=== PATIENT | male | born 1965 | race Caucasian/White ===

== ENCOUNTER 2017-12-31 12:24 | Emergency (ER) | payer BC ==
[2017-12-31] MEDS ORDERED: Sodium Chloride 0.9% 10 ML Syringe FLUSH PRN (12:29)
[2017-12-31] MEDS ORDERED: Famotidine 20 MG/2 ML SDV IVPUSH ONE (12:30)
[2017-12-31] MEDS ORDERED: Alum Hydrox/Mag Hydrox/Simeth 30 ML, Lidocaine 2% 15 ML PO ONE ×2 (12:30)
--- NOTE | 2017-12-31 12:33 | EDM.PDOC ---
ED HPI GENERAL MEDICAL PROBLEM - General Chief Complaint: Chest Pain Stated Complaint: [facility] Time Seen by Provider: 12/31/17 12:29 Source of Information: Reports: Patient, EMS History Limitations: Reports: No Limitations - History of Present Illness INITIAL COMMENTS - FREE TEXT/NARRATIVE: The patient presents with burning chest pain. This stared about 5 minutes before he called EMS. He at a spicy breakfast taco this morning. He has no shortness of breath with it. He has no fever but he does have chills. He is diaphoretic. He has a history of coronary artery disease with an CO and 4 stents. He has no shortness of breath. He has no cough or abdominal pain. He has a history of HTN and hypercholesterolemia. EMS gave him 2 nitro, aspirin and 2 doses of morphine. Onset: Sudden Duration: Minutes: Location: Reports: Chest Quality: Reports: Burning Severity: Moderate Improves with: Reports: None Worsens with: Reports: None Associated Symptoms: Reports: Chest Pain, Fever/Chills. Denies: Cough, Headaches, Nausea/Vomiting, Shortness of Breath Chest Pain Score (Numeric/FACES): 9 - Related Data Allergies Allergy/AdvReac Type Severity Reaction Status Date / Time No Known Allergies Allergy Verified 12/31/17 12:29 Home Meds: Home Meds Enalapril [Vasotec] 10 mg PO BID 10/14/15 [History] Esomeprazole Magnesium 40 mg PO DAILY 10/14/15 [History] Metoprolol Tartrate 50 mg PO DAILY 10/14/15 [History] Sertraline HCl 50 mg PO BID 10/14/15 [History] atorvaSTATin Calcium [Atorvastatin Calcium] 40 mg PO DAILY 10/14/15 [History] Aspirin [Halfprin] 81 mg PO DAILY 12/31/17 [History] Fish Oil/[place]-3 Fatty Acids [Fish Oil 1,000 MG] 1 each PO DAILY 12/31/17 [ History] Garlic 1 each PO DAILY 12/31/17 [History] Gluc 2KCl/Chondr/[place] Hy/Hy Ac [Glucosamine & Chondroitin Cap] 1 each PO DAILY 12/31/17 [History] Mens Alive. 1 tab PO DAILY 12/31/17 [History] Ubidecarenone [Co Q-10] 100 mg PO MOWEFR 12/31/17 [History] Past Medical History Cardiovascular History: Reports: Hypertension, [place] Respiratory History: Reports: Sleep Apnea Gastrointestinal History: Reports: GERD, Hiatal Hernia - Past Surgical History Cardiovascular Surgical History: Reports: Coronary Artery Stent ED ROS GENERAL - Review of Systems Review Of Systems: See Below Constitutional: Reports: No Symptoms HEENT: Reports: No Symptoms Respiratory: Reports: No Symptoms Cardiovascular: Reports: Chest Pain Endocrine: Reports: No Symptoms GI/Abdominal: Reports: No Symptoms : Reports: No Symptoms Musculoskeletal: Reports: No Symptoms Skin: Reports: No Symptoms ED EXAM, GENERAL - Physical Exam Exam: See Below Exam Limited By: No Limitations General Appearance: Alert, No Apparent Distress Ears: Normal External Exam Nose: Normal Inspection Head: Atraumatic, Normocephalic Neck: Normal Inspection Respiratory/Chest: No Respiratory Distress, Lungs Clear, Normal Breath Sounds Cardiovascular: Regular Rate, Rhythm, No Edema, No Murmur GI/Abdominal: Soft, Non-Tender, No Organomegaly, No Mass Extremities: Normal Inspection Neurological: Alert, Oriented, No Motor/Sensory Deficits EKG INTERPRETATION EKG Date: 12/31/17 Time: 12:29 Rhythm: NSR Rate (Beats/Min): 69 [place]: Normal P-Wave: Present QRS: Normal ST-T: Other (Slight elevation in the inferior leads with some ST depression in the anterior leads) Course - Vital Signs Last Recorded V/S: Last Vital Signs Temp 96.4 F 12/31/17 12:29 Pulse 74 12/31/17 12:55 Resp 26 H 12/31/17 12:29 BP 119/74 12/31/17 12:55 Pulse Ox 99 12/31/17 12:29 - Orders/Labs/Meds Orders: Active Orders 24 hr Category Date Time Status Cardiac Monitoring [RC] . DIRECTED Care 12/31/17 12:29 Active EKG 12 Lead [EKG Documentation Completion] [RC] STAT Care 12/31/17 13:07 Active EKG Documentation Completion [RC] STAT Care 12/31/17 12:30 Active Peripheral IV Care [RC] . DIRECTED Care 12/31/17 12:30 Active Chest 1V Frontal [CR] Stat Exams 12/31/17 12:30 Taken CBC W/O DIFF,HEMOGRAM [HEME] MOTH@0700 Lab 01/01/18 07:00 Ordered CBC W/O DIFF,HEMOGRAM [HEME] MOTH@0700 Lab 01/05/18 07:00 Ordered CBC W/O DIFF,HEMOGRAM [HEME] MOTH@0700 Lab 01/08/18 07:00 Ordered CBC W/O DIFF,HEMOGRAM [HEME] MOTH@0700 Lab 01/12/18 07:00 Ordered CBC W/O DIFF,HEMOGRAM [HEME] MOTH@0700 Lab 01/15/18 07:00 Ordered CBC W/O DIFF,HEMOGRAM [HEME] MOTH@0700 Lab 01/19/18 07:00 Ordered COMPREHENSIVE METABOLIC PN,CMP [CHEM] Stat Lab 12/31/17 12:53 Received TROPONIN I [CHEM] Stat Lab 12/31/17 12:53 Received Heparin Sodium Med 12/31/17 13:09 Once 5,000 units IVPUSH ONETIME ONE Heparin Sodium/D5W [Heparin 25,000 Units in D5W 500 ML] Med 12/31/17 13:15 Ordered 25,000 units in 500 ml IV TITRATE Nitroglycerin/D5W [Nitroglycerin 25 MG/D5W 250 ML] Med 12/31/17 13:15 Ordered 25 mg in 250 ml IV TITRATE Sodium Chloride 0.9% [Saline Flush] Med 12/31/17 12:29 Active 10 ml FLUSH ASDIRECTED PRN Tenecteplase [Tnkase] Med 12/31/17 13:03 Once 50 mg IV ONETIME ONE Peripheral IV Insertion Adult [OM.PC] Stat Oth 12/31/17 12:29 Ordered Medication Orders Sodium Chloride (Saline Flush) 10 ml FLUSH ASDIRECTED PRN PRN Reason: Keep Vein Open Last Admin: 12/31/17 12:38 Dose: 10 ml Labs: Laboratory Tests 12/31/17 Range/Units 12:53 WBC 11.57 H (4.23-9.07) K/mm3 RBC 5.10 (4.63-6.08) M/mm3 Hgb 16.6 (13.7-17.5) gm/L Hct 48.2 (40.1-51.0) % MCV 94.5 H (79.0-92.2) fl MCH 32.5 H (25.7-32.2) pg MCHC 34.4 (32.2-35.5) g/dl RDW Std Deviation 44.5 H (35.1-43.9) fL Plt Count 289 (163-337) K/mm3 MPV 10.3 (9.4-12.3) fl Neut % (Auto) 59.3 (34.0-67.9) % Lymph % (Auto) 28.3 (21.8-53.1) % [place] % (Auto) 7.0 (5.3-12.2) % Eos % (Auto) 4.5 (0.8-7.0) Baso % (Auto) 0.7 (0.1-1.2) % Neut # (Auto) 6.87 H (1.78-5.38) K/mm3 Lymph # (Auto) 3.27 (1.32-3.57) K/mm3 [place] # (Auto) 0.81 (0.30-0.82) K/mm3 Eos # (Auto) 0.52 (0.04-0.54) K/mm3 Baso # (Auto) 0.08 (0.01-0.08) K/mm3 Meds: Medications Generic Name Dose Route Start Last Admin Trade Name Freq PRN Reason Stop Dose Admin Sodium Chloride 10 ml 12/31/17 12:29 12/31/17 12:38 Saline Flush FLUSH 10 ml ASDIRECTED PRN Administration Keep Vein Open Discontinued Medications Generic Name Dose Route Start Last Admin Trade Name Freq PRN Reason Stop Dose Admin Al Hydroxide/Mg Hydroxide 30 0 ml 12/31/17 12:30 12/31/17 12:36 ml/ Lidocaine HCl 15 ml PO 12/31/17 12:31 45 ml ONETIME ONE Administration Famotidine 20 mg 12/31/17 12:30 12/31/17 12:37 Pepcid IVPUSH 12/31/17 12:31 20 mg ONETIME ONE Administration Hydromorphone HCl 0.5 mg 12/31/17 12:48 12/31/17 12:49 Dilaudid IVPUSH 12/31/17 12:49 0.5 mg ONETIME ONE Administration Hydromorphone HCl 0.5 mg 12/31/17 12:59 Dilaudid IVPUSH 12/31/17 13:00 ONETIME ONE Nitroglycerin 0.4 mg 12/31/17 12:40 12/31/17 12:48 Nitrostat SL 12/31/17 12:41 0.4 mg ONETIME ONE Administration Nitroglycerin Confirm 12/31/17 12:42 12/31/17 12:44 Nitrostat Administered 12/31/17 12:43 Not Given Dose 0.4 mg .ROUTE .STK-MED ONE Tenecteplase Confirm 12/31/17 13:03 Tnkase Administered 12/31/17 13:04 Dose 50 mg .ROUTE .STK-MED ONE - Re-Assessments/Exams Free Text/Narrative Re-Assessment/Exam: 12/31/17 13:12 I ordered an IV saline lock, 2 nitro 0.4mg SL, pepcid 20mg IV, GI cocktail, EKG , CXR, and labs. His EKG shows a NSR with slight elevation in the inferior leads and some ST depression in the anterior leads. He had more pain so I ordered dilaudid 0.5mg IV X 2. I ordered another EKG at 1300 and there now is significant ST elevations in the inferior leads with reciprocal changes in the anterior leads. His CXR looks good. I ordered TnKase 50mg IV, heparin drip of 5,000 units IV, and a drip ant then a nitro drip. 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 Departure - Departure Time of Disposition: 13:20 Disposition: DC/Tfer to Acute Hospital 02 Reason for Transfer *Q: Primary PCI Indicated Condition: Serious Clinical Impression: STEMI (ST elevation myocardial infarction) Qualifiers: Involved coronary artery: right coronary artery Qualified Code(s): I21.11 - ST elevation (STEMI) myocardial infarction involving right coronary artery Forms: ED Department Discharge - My Orders Last 24 Hours: My Active Orders 12/31/17 12:29 Cardiac Monitoring [RC] . DIRECTED Sodium Chloride 0.9% [Saline Flush] 10 ml FLUSH ASDIRECTED PRN Peripheral IV Insertion Adult [OM.PC] Stat 12/31/17 12:30 EKG Documentation Completion [RC] STAT Peripheral IV Care [RC] . DIRECTED Chest 1V Frontal [CR] Stat 12/31/17 12:53 COMPREHENSIVE METABOLIC PN,CMP [CHEM] Stat TROPONIN I [CHEM] Stat 12/31/17 13:03 Tenecteplase [Tnkase] 50 mg IV ONETIME ONE 12/31/17 13:07 EKG 12 Lead [EKG Documentation Completion] [RC] STAT 12/31/17 13:09 Heparin Sodium 5,000 units IVPUSH ONETIME ONE 12/31/17 13:15 Heparin Sodium/D5W [Heparin 25,000 Units in D5W 500 ML] 25,000 units in 500 ml IV TITRATE Nitroglycerin/D5W [Nitroglycerin 25 MG/D5W 250 ML] 25 mg in 250 ml IV TITRATE 01/01/18 07:00 CBC W/O DIFF,HEMOGRAM [HEME] MOTH@69901/05/18 07:00 CBC W/O DIFF,HEMOGRAM [HEME] MOTH@69901/08/18 07:00 CBC W/O DIFF,HEMOGRAM [HEME] MOTH@69901/12/18 07:00 CBC W/O DIFF,HEMOGRAM [HEME] MOTH@69901/15/18 07:00 CBC W/O DIFF,HEMOGRAM [HEME] MOTH@69901/19/18 07:00 CBC W/O DIFF,HEMOGRAM [HEME] MOTH@699 - Assessment/Plan Last 24 Hours: My Active Orders 12/31/17 12:29 Cardiac Monitoring [RC] . DIRECTED Sodium Chloride 0.9% [Saline Flush] 10 ml FLUSH ASDIRECTED PRN Peripheral IV Insertion Adult [OM.PC] Stat 12/31/17 12:30 EKG Documentation Completion [RC] STAT Peripheral IV Care [RC] . DIRECTED Chest 1V Frontal [CR] Stat 12/31/17 12:53 COMPREHENSIVE METABOLIC PN,CMP [CHEM] Stat TROPONIN I [CHEM] Stat 12/31/17 13:03 Tenecteplase [Tnkase] 50 mg IV ONETIME ONE 12/31/17 13:07 EKG 12 Lead [EKG Documentation Completion] [RC] STAT 12/31/17 13:09 Heparin Sodium 5,000 units IVPUSH ONETIME ONE 12/31/17 13:15 Heparin Sodium/D5W [Heparin 25,000 Units in D5W 500 ML] 25,000 units in 500 ml IV TITRATE Nitroglycerin/D5W [Nitroglycerin 25 MG/D5W 250 ML] 25 mg in 250 ml IV TITRATE 01/01/18 07:00 CBC W/O DIFF,HEMOGRAM [HEME] MOTH@69901/05/18 07:00 CBC W/O DIFF,HEMOGRAM [HEME] MOTH@69901/08/18 07:00 CBC W/O DIFF,HEMOGRAM [HEME] MOTH@69901/12/18 07:00 CBC W/O DIFF,HEMOGRAM [HEME] MOTH@69901/15/18 07:00 CBC W/O DIFF,HEMOGRAM [HEME] MOTH@69901/19/18 07:00 CBC W/O DIFF,HEMOGRAM [HEME] MOTH@699
[2017-12-31] MEDS ORDERED: Nitroglycerin 0.4 MG Tab.SL ONE (12:42)
[2017-12-31] MEDS: Nitroglycerin 0.4 MG Tab.SL SL ONE ×2 (12:43→12:48)
[2017-12-31] MEDS ORDERED: HYDROmorphone 0.5 MG/0.5 ML SYRINGE IVPUSH ONE ×2 (12:48→12:59)
[2017-12-31] MEDS ORDERED: Tenecteplase 50 MG Kit ONE (13:03)
[2017-12-31] MEDS ORDERED: Tenecteplase 50 MG Kit IV ONE (13:03)
[2017-12-31] MEDS ORDERED: Heparin Sodium 5,000 Units/ML Vial IVPUSH ONE (13:09)
[2017-12-31] MEDS ORDERED: Heparin Sodium 5,000 Units/ML Vial ONE (13:09)
[2017-12-31] MEDS ORDERED: Heparin Sodium/D5W 500 ML ONE (13:09)
[2017-12-31] MEDS ORDERED: Nitroglycerin/D5W 25 MG/250 ML BOTTLE ONE (13:10)
[2017-12-31] MEDS ORDERED: Nitroglycerin/D5W 25 MG/250 ML BOTTLE IV SCH (13:15)
[2017-12-31] MEDS ORDERED: Heparin Sodium/D5W 25,000 UNITS/500 ML BAG IV SCH (13:15)
[2017-12-31 14:14] VITALS: BP 159/88
--- NOTE | 2018-01-01 09:04 | CR ---
Chest: Portable view of the chest was obtained. Comparison: Prior chest x-ray of 10/14/15. Heart size appears within normal limits. Tortuous thoracic aorta is seen. Lungs are clear without acute parenchymal change. Bony structures are grossly intact. Impression: 1. Nothing acute is seen on portable chest x-ray. Diagnostic code #1
== END 2017-12-31 13:42 ==
LOC: JD.ED 12:24
DX: I21.11 ST elevation (STEMI) myocardial infarction involving right coronary artery (principal); I10 Essential (primary) hypertension; I25.2 Old myocardial infarction; K21.9 Gastro-esophageal reflux disease without esophagitis; Z79.82 Long term (current) use of aspirin; Z79.899 Other long term (current) drug therapy
CPT/HCPCS: 36415; 71045; 80053; 84484; 85025; 93005; 96365; 96368; 96375; 96376; 99285; A9270; J1170; J1644; J3101; J7050

== ENCOUNTER 2020-10-09 07:12 | Day surgery (SDC) | payer OTHER, MEDICAID ==
[~2020-10-09 07:12] MED LIST: Lactated Ringers 1,000 ML IV SCH; Lidocaine 1%/Sod Bicarbonate in NS 8.4% 1 ML Syringe IDERM PRN; Midazolam 1 MG/ML 2 ML SDV ONE; Propofol 200 MG/20 ML SDV ONE; Sodium Chloride 0.9% 10 ML Syringe FLUSH PRN; fentaNYL 100 MCG/2 ML SDV ONE
--- NOTE | 2020-10-09 07:29 | PCM.PREANE ---
Preanesthetic Assessment - Anesthesia/Transfusion/Family Hx Anesthesia History: Prior Anesthesia Without Reaction Family History of Anesthesia Reaction: No Transfusion History: No Prior Transfusion(s) - Review of Systems General: Other (BMI 42) Pulmonary: Other (CPAP at night, current smokeless tobacco user, last chewed yesterday) Cardiovascular: Other (pt as history of 3 [place]/s last one in december 2017. last heart cath in 2018 demonstrated all stents open and EF showed 50-60%, last EKG was SR, stress test jul 2020 was negative) Gastrointestinal: Other (on current meds for GERD, history of hiatial hernia) Neurological: No Symptoms Other: Reports: Diabetes (on orals), Depression - Physical Assessment NPO Status Date: 10/08/20 NPO Status Time: 23:00 Weight: 130.9 kg ASA Class: 3 Mental Status: Alert & Oriented x3 Airway Class: Mallampati = 2 Dentition: Reports: Normal Dentition Thyro-Mental Finger Breadths: 3 Mouth Opening Finger Breadths: 3 ROM/Head Extension: Full Lungs: Clear to Auscultation, Normal Respiratory Effort Cardiovascular: Regular Rate, Regular Rhythm - Allergies Allergies/Adverse Reactions: Allergies Allergy/AdvReac Type Severity Reaction Status Date / Time No Known Allergies Allergy Verified 10/06/20 11:35 - Blood Blood Available: No Product(s) Available: None - Anesthesia Plan Beta Scooby: Metoprolol Med Last Dose Date: 10/09/20 Med Last Dose Time: 06:30 - Acknowledgements Anesthesia Type Planned: MAC Pt an Appropriate Candidate for the Planned Anesthesia: Yes Alternatives and Risks of Anesthesia Discussed w Pt/Guardian: Yes Pt/Guardian Understands and Agrees with Anesthesia Plan: Yes PreAnesthesia Questionnaire HEENT History: Reports: Impaired Vision, Other (See Below) Other HEENT History: wears glasses Cardiovascular History: Reports: Hypertension, [place], Stents, Other (See Below) Other Cardiovascular History: NSTEMI, ACS, heart cath with stents placed Respiratory History: Reports: Sleep Apnea Gastrointestinal History: Reports: GERD, Hiatal Hernia Genitourinary History: Reports: None 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: None Neurological History: Reports: None Psychiatric History: Reports: Addiction, Anxiety, Depression, Other (See Below) Other Psychiatric History: pt is a smoker Endocrine/Metabolic History: Reports: Other (See Below) Other Endocrine/Metabolic History: metabolic sydnrome Hematologic History: Reports: None Immunologic History: Reports: None Oncologic (Cancer) History: Reports: None Dermatologic History: Reports: None - Infectious Disease History Infectious Disease History: Reports: None - Past Surgical History Head Surgeries/Procedures: Reports: None Cardiovascular Surgical History: Reports: Coronary Artery Stent Other Cardiovascular Surgeries/Procedures: stents 2000. stents in 2010 Respiratory Surgical History: Reports: None GI Surgical History: Reports: None Female Surgical History: Reports: None Male Surgical History: Reports: None Endocrine Surgical History: Reports: None Neurological Surgical History: Reports: None Musculoskeletal Surgical History: Reports: Arthroscopic Knee Oncologic Surgical History: Reports: None Dermatological Surgical History: Reports: None - SUBSTANCE USE Tobacco Use Status *Q: Current Every Day Tobacco User Recreational Drug Use History: No - HOME MEDS Home Medications: Home Meds Enalapril [Vasotec] 10 mg PO BID 10/14/15 [History] Esomeprazole Magnesium 40 mg PO DAILY 10/14/15 [History] Sertraline HCl 100 mg PO DAILY 10/14/15 [History] Aspirin [Halfprin] 81 mg PO DAILY 12/31/17 [History] Fish Oil/[place]-3 Fatty Acids [Fish Oil 1,000 MG] 1 gm PO DAILY 12/31/17 [History] Garlic 1 each PO DAILY 12/31/17 [History] Ubidecarenone [Co Q-10] 100 mg PO DAILY 12/31/17 [History] Albuterol Sulfate [Albuterol Sulfate HFA] 2 puff INH QID 10/06/20 [History] Isosorbide Mononitrate [Imdur] 30 mg PO DAILY 10/06/20 [History] Metoprolol Succinate 50 mg PO DAILY 10/06/20 [History] Multivitamin 1 tab PO DAILY 10/06/20 [History] Nitroglycerin [Nitrostat] 0.4 mg SL ASDIRECTED PRN 10/06/20 [History] Pantoprazole Sodium [Protonix] 40 mg PO QAM 10/06/20 [History] Prasugrel HCl [Effient] 10 mg PO DAILY 10/06/20 [History] atorvaSTATin [Lipitor] 40 mg PO DAILY 10/06/20 [History] - CURRENT (IN HOUSE) MEDS Current Meds: Current Medications Lactated Ringer's (Ringers, Lactated) 1,000 mls @ 125 mls/hr IV ASDIRECTED MARTA Stop: 10/09/20 23:00 Lidocaine/Sodium Bicarbonate (Lidocaine 1%/Sod Bicarbonate In Ns 8.4% 1 Ml Syringe) 0.25 ml IDERM ONETIME PRN PRN Reason: Prior to IV Start Stop: 10/09/20 18:00 Sodium Chloride (Sodium Chloride 0.9% 10 Ml Syringe) 10 ml FLUSH ASDIRECTED PRN PRN Reason: Keep Vein Open Stop: 10/09/20 18:00 Discontinued Medications Fentanyl (Fentanyl 100 Mcg/2 Ml Sdv) Confirm Administered Dose 100 mcg .ROUTE .STK-MED ONE Stop: 10/09/20 07:09 Midazolam HCl (Midazolam 1 Mg/Ml 2 Ml Sdv) Confirm Administered Dose 2 mg .ROUTE .STK-MED ONE Stop: 10/09/20 07:09 Propofol (Propofol 200 Mg/20 Ml Sdv) Confirm Administered Dose 600 mg .ROUTE .STK-MED ONE Stop: 10/09/20 07:09
[2020-10-09] MEDS ORDERED: Propofol 200 MG/20 ML SDV ONE (08:43)
--- NOTE | 2020-10-09 08:59 | PCM48HPAN ---
Post Anesthesia Note - EVALUATION WITHIN 48HRS OF ANESTHETIC Vital Signs in Normal Range: Yes Patient Participated in Evaluation: Yes Respiratory Function Stable: Yes Airway Patent: Yes Cardiovascular Function Stable: Yes Hydration Status Stable: Yes Pain Control Satisfactory: Yes Nausea and Vomiting Control Satisfactory: Yes Mental Status Recovered: Yes Vital Signs: Last Vital Signs Temp 36.1 C 10/09/20 07:15 Pulse 84 10/09/20 07:15 Resp 16 10/09/20 07:15 BP 139/62 10/09/20 07:15 Pulse Ox 95 10/09/20 07:15
[2020-10-09] MEDS ORDERED: fentaNYL 100 MCG/2 ML SDV IVPUSH ONE (09:00)
[2020-10-09] MEDS ORDERED: oxyCODONE 5 MG Tab PO ONE (09:19)
[2020-10-09 09:51] VITALS: BP 122/74; PULSE 71
--- NOTE | 2020-10-09 12:42 | PROC ---
DATE OF OPERATION: 10/09/2020 SURGEON: Kaykay Lee MD PREOPERATIVE DIAGNOSES: 1. Gastroesophageal reflux disease. 2. Need for screening colonoscopy. POSTOPERATIVE DIAGNOSES: 1. Small hiatal hernia. 2. 2 colonic polyps - removed. 3. Diverticulosis. 4. Grade 4 internal hemorrhoids - Banded. ESTIMATED BLOOD LOSS: Minimal. OPERATION PERFORMED: 1. Esophagogastroduodenoscopy. 2. Colonoscopy. ANESTHESIA: Monitored anesthesia care. COMPLICATIONS: None. INDICATION AND CONSENT: Mr. Baldwin is a 55-year-old male who has heartburn and reflux. The patient also never had a colonoscopy in the past. The patient wanted to have a screening colonoscopy due to age. I saw the patient, discussed risks, benefits, and alternatives. During our discussion, we noted that the patient had prior MIs and patient was recently placed on prasugrel based on his chest pains. Because of this and the fact that he was asymptomatic, I discussed with him about holding the prasugrel and I did communicate with his plug sorter who has agreed that it is safe to hold the prasugrel. The patient had longstanding symptomatic hemorrhoid that was bulging out every time patient had a bowel movement and was staying outside. The patient wanted this treated during the colonoscopy. We discussed that if we were to treat the hemorrhoid, then the patient will have to be off prasugrel for another 10 days post treatment. However, the patient will need to continue taking aspirin for preventative due to his strong history of cardiac problems. The patient agreed and we discussed risks, benefits, and alternatives and informed consent was obtained. DESCRIPTION OF PROCEDURE: The patient was taken to the procedure room, placed in left lateral decubitus position. Monitored anesthesia care was induced. We began with an EGD. Prior to insertion of the scope, time-out was performed and the bite block was placed. We started with an EGD, placed the scope down to the mouth and taken all the way to the stomach. We did this while examining the esophagus, which appeared normal. The GE junction was at 38 cm and was regular. The Z-line was regular and there was a medium-sized hiatal hernia, sliding type. Then, we went into the stomach and the second portion of duodenum which was normal. First portion duodenum was also normal. In the antrum. there was mild granularity Therefore, biopsies were taken with cold forceps to rule out infection. The rest of the stomach appeared normal. There was large amount of fluid in the stomach that was suctioned out. This appeared to be slightly bilious. On retroflexion, we confirmed a small hiatal hernia, sliding type, and then went back to the GE junction and examined this area and that appeared to be normal. Distal esophagus was normal. Once this was done, we went back to the stomach, suctioned out air and all the fluid from the stomach and concluded this part of the exam. Of note, we took some biopsies from the GE junction to make sure there were no changes to this area given to the patient's history of chronic heartburn. Then, we turned our attention to colonoscopy. Perianal exam was significant for grade 4 complex hemorrhoid, at the right posterior aspect. The scope was inserted and taken all the way to the cecum. Appendiceal orifice and ileocecal valve were photographed. There was a 2 mm polyp in the cecum that was taken with cold forceps. We started withdrawing when examining the entirety of the colon. Prep was good to identify all sizes of the polyps. Upon withdrawal, we noted 1 large diverticulum in the distal ascending colon and then continued withdrawal. There were scattered large and small diverticulosis in the sigmoid colon. There was another 3 mm polyp in the sigmoid colon that was all taken with cold forceps. There were no other polyps. On retroflexion, we confirmed internal hemorrhoids that were irritated. Therefore, the decision was made to go ahead and treat the hemorrhoids with banding. We suctioned the air out and took the scope out. Then, an anoscope was placed into the anal canal and isolate the hemorrhoids at all 3 positions. The right posterior hemorrhoids were large and it was occluding part of the canal because of its size. Therefore, decision was made to place multiple bands on this one to try to reduce it. Three bands were placed on this hemorrhoid and another additional band was placed on the hemorrhoids on the left lateral position, which was also the large hemorrhoid. The right anterior hemorrhoid was not banded, but its size was smaller than the rest. There was slight oozing at the end of the procedure, but no significant bleeding. Once the banding was done, we concluded the procedure here and the patient was taken to the recovery area. The patient will be allowed to return home and follow up with my nurse practitioner in 2 weeks for further discussion. The patient was instructed further care of the hemorrhoids, was given stool softeners, pain medications as well as topical treatment with dibucaine and all questions were answered. VLADISLAV /[id number]
== END 2020-10-09 09:52 | disposition home or self-care (01) ==
LOC: JD.SDS 07:12
PROVIDERS: ATTEND Surgery
DX: D12.0 Benign neoplasm of cecum (principal); D12.5 Benign neoplasm of sigmoid colon; K31.7 Polyp of stomach and duodenum; K57.30 Diverticulosis of large intestine without perforation or abscess without bleeding; K44.9 Diaphragmatic hernia without obstruction or gangrene; K64.3 Fourth degree hemorrhoids; K21.9 Gastro-esophageal reflux disease without esophagitis; I10 Essential (primary) hypertension; I25.10 Atherosclerotic heart disease of native coronary artery without angina pectoris; E78.5 Hyperlipidemia, unspecified; I25.2 Old myocardial infarction; Z79.82 Long term (current) use of aspirin; Z95.5 Presence of coronary angioplasty implant and graft; Z98.890 Other specified postprocedural states; Z79.899 Other long term (current) drug therapy; Z91.038 Other insect allergy status; Z88.8 Allergy status to other drugs, medicaments and biological substances; Z87.891 Personal history of nicotine dependence
CPT/HCPCS: 43239; 45380; 46221; A9270; J2250; J2704; J3010; J7120; 00813; 88305

== ENCOUNTER 2021-02-24 19:20 | Emergency (ER) | payer OTHER, MEDICAID ==
[2021-02-24] MEDS ORDERED: Sodium Chloride 0.9% 1,000 ML IV ONE (20:10)
--- NOTE | 2021-02-24 20:16 | EDM.PDOC ---
ED HPI GENERAL MEDICAL PROBLEM - General Chief Complaint: ENT Problem Stated Complaint: COUGHING UP BLOOD Time Seen by Provider: 02/24/21 19:47 Source of Information: Reports: Patient, Family () History Limitations: Reports: No Limitations - History of Present Illness INITIAL COMMENTS - FREE TEXT/NARRATIVE: Mr. Baldwin is a very pleasant 55-year-old gentleman who states that he underwent a right tonsillectomy, a wisdom tooth extraction, and excision of 30 right sided lymph nodes last 02/16/2021, in [place]. He reports that he has had decreased oral intake due to pain; his states that he has not had anything to eat for the past 4 days, and the patient states that it hurts for him to swallow liquids, as well. He states that he coughed or spit up an egg si zed blood clot this morning, after he sat up from a semirecumbent position. The same happened again tonight. He states that he called his Surgeon's nurse, and was told that such events are not uncommon following his type of surgery. The patient is concerned that he is dehydrated, and is requesting IV fluid. Here in the ED, the patient's initial BP is found to be modestly elevated at 152/85, with slight tachycardia of 103 bpm. He is afebrile, saturating 99% on room air. He appears to be relatively comfortable, in no acute distress. The patient states that he has been feeling both hot and cold, otherwise, the patient denies having a recent fever, ear pain, nasal or sinus congestion, cough, dyspnea, chest pain, palpitations, nausea, vomiting, constipation, diarrhea, abdominal pain, urinary symptoms, recent weight gain or weight loss, recent bloody bowel movements or black bowel movements, recent joint aches, headaches, or rashes. The patient's PCP is Yolanda Horn NP, although he also sees Dr. Isabel Brush at the [facility]. His Health Center Manager is Dr. Rodriguez Sequeira, in [place]. His Internal Audit Senior Manager is Dr. John Mejia. He has not received a COVID vaccination. Right Throat Pain Score (Numeric/FACES): 9 - Related Data Allergies Allergy/AdvReac Type Severity Reaction Status Date / Time No Known Allergies Allergy Verified 02/24/21 19:37 Home Meds: Home Meds Sertraline HCl 100 mg PO DAILY 10/14/15 [History] Aspirin [Halfprin] 81 mg PO DAILY 12/31/17 [History] Fish Oil/[place]-3 Fatty Acids [Fish Oil 1,000 MG] 1 gm PO DAILY 12/31/17 [History] Garlic 1 each PO DAILY 12/31/17 [History] Ubidecarenone [Co Q-10] 100 mg PO BEDTIME 12/31/17 [History] Isosorbide Mononitrate [Imdur] 30 mg PO DAILY 10/06/20 [History] Metoprolol Succinate 50 mg PO DAILY 10/06/20 [History] Pantoprazole Sodium [Protonix] 40 mg PO QAM 10/06/20 [History] Prasugrel HCl [Effient] 10 mg PO DAILY 10/06/20 [History] atorvaSTATin [Lipitor] 40 mg PO BEDTIME 10/06/20 [History] Celecoxib 200 mg PO DAILY 02/24/21 [History] methylPREDNISolone [Methylprednisolone] 4 mg PO DAILY 02/24/21 [History] oxyCODONE ER [OxyCONTIN] 10 mg PO Q12H PRN 02/24/21 [History] traMADol [Ultram] 50 mg PO Q6H PRN 02/24/21 [History] Past Medical History HEENT History: Reports: Impaired Vision (wears glasses) Cardiovascular History: Reports: CAD, High Cholesterol, Hypertension, [place] (x 3) Respiratory History: Reports: Sleep Apnea (nightly CPAP) Gastrointestinal History: Reports: GERD, Hiatal Hernia Psychiatric History: Reports: Depression Endocrine/Metabolic History: Reports: Obesity/BMI 30+ - Past Surgical History HEENT Surgical History: Reports: Oral Surgery (dental extractions), Tonsillectomy Cardiovascular Surgical History: Reports: Coronary Artery Stent (x 4), Other (See Below) (Coronary angiogram x 4) GI Surgical History: Reports: Colonoscopy (x 1), EGD (x 2) Musculoskeletal Surgical History: Reports: Arthroscopic Knee Social & Family History - Tobacco Use Tobacco Use Status *Q: Former Tobacco User Tobacco Use Within Last Twelve Months: Smokeless Tobacco (Chews 1/3 can per week) Years of Tobacco use: 30 Packs/Tins Daily: 1 Month/Year Tobacco Last Used: Quit 2017 Tobacco Use Comment: Started smoking 1987 - Caffeine Use Caffeine Use: Reports: None - Alcohol Use Alcohol Use History: Yes Alcohol Use Frequency: Socially - Recreational Drug Use Recreational Drug Use: No - Living Situation & Occupation Living situation: Reports: , with Spouse Occupation: Employed (Construction) ED ROS ENT - Review of Systems Review Of Systems: Comprehensive ROS is negative, except as noted in HPI. ED EXAM, ENT - Physical Exam Exam: See Below Exam Limited By: No Limitations General Appearance: Alert, WD/WN, No Apparent Distress Eye Exam: Bilateral Eye: EOMI, Normal Inspection Ears: Normal External Exam, Normal Canal, Hearing Grossly Normal, Normal TMs Nose: Normal Inspection, Normal Mucousa, No Blood Mouth/Throat: Normal Gums, Normal Lips, Normal Teeth, Other (Right tonsillectomy with minimal valdes eschar, healing appropriately. No bleeding seen.) Head: Atraumatic, Normocephalic Neck: Supple, Other (Healing right neck surgical wound) Respiratory/Chest: No Respiratory Distress, Lungs Clear, Normal Breath Sounds, No Accessory Muscle Use. No: Decreased Breath Sounds, Crackles, Rhonchi, Wheezing, Stridor, Prolonged Expiration Cardiovascular: Normal Peripheral Pulses, Regular Rate, Rhythm, No Gallop, No JVD, No Murmur, No Rub GI/Abdominal: Normal Bowel Sounds, Soft, Non-Tender, No Organomegaly, No Distention, No Abnormal Bruit, No Mass Back: Normal Inspection, Full Range of Motion Extremities: Normal Inspection, Normal Range of Motion, Normal Capillary Refill Neurological: Alert, Oriented, Normal Cognition, No Motor/Sensory Deficits Psychiatric: Normal Affect Skin: Warm, Dry, Intact, Normal Color, No Rash Course - Vital Signs Last Recorded V/S: Last Vital Signs Temp 36.9 C 02/24/21 19:33 Pulse 73 02/24/21 22:00 Resp 20 02/24/21 22:00 BP 114/79 02/24/21 22:00 Pulse Ox 97 02/24/21 22:00 - Orders/Labs/Meds Orders: Active Orders 24 hr Category Date Time Status Chest 2V [CR] Stat Exams 02/24/21 20:09 Taken Labs: Laboratory Tests 02/24/21 02/24/21 Range/Units 20:25 20:25 WBC 11.91 H (4.23-9.07) K/mm3 RBC 5.47 (4.63-6.08) M/mm3 Hgb 13.2 L D (13.7-17.5) gm/dl Hct 42.9 (40.1-51.0) % MCV 78.4 L D (79.0-92.2) fl MCH 24.1 L (25.7-32.2) pg MCHC 30.8 L (32.2-35.5) g/dl RDW Std Deviation 48.7 H (35.1-43.9) fL Plt Count 403 H D (163-337) K/mm3 MPV 9.9 (9.4-12.3) fl Neutrophils % (Manual) 67 H (40-60) % Band Neutrophils % 0 (0-10) % Lymphocytes % (Manual) 29 (20-40) % Atypical Lymphs % 0 % Monocytes % (Manual) 3 (2-10) % Eosinophils % (Manual) 1 (0.8-7.0) % Basophils % (Manual) 0 L (0.2-1.2) Platelet Estimate Adequate RBC Morph Comment Normal Sodium 137 (136-145) mEq/L Potassium 4.1 (3.5-5.1) mEq/L Chloride 102 (98-107) mEq/L Carbon Dioxide 22 (21-32) mEq/L Anion Gap 17.1 H (5-15) BUN 31 H (7-18) mg/dL Creatinine 1.0 (0.7-1.3) mg/dL Est Cr Clr Drug Dosing 84.15 mL/min Estimated GFR (MDRD) > 60 (>60) mL/min BUN/Creatinine Ratio 31.0 H (14-18) Glucose 170 H (70-99) mg/dL Calcium 8.8 (8.5-10.1) mg/dL Magnesium 2.0 (1.8-2.4) mg/dL Total Bilirubin 0.4 (0.2-1.0) mg/dL AST 28 (15-37) U/L ALT 75 H (16-63) U/L Alkaline Phosphatase 63 (46-116) U/L Total Protein 7.9 (6.4-8.2) g/dl Albumin 3.7 (3.4-5.0) g/dl Globulin 4.2 gm/dL Albumin/Globulin Ratio 0.9 L (1-2) Meds: Medications Discontinued Medications Generic Name Dose Route Start Last Admin Trade Name Freq PRN Reason Stop Dose Admin Sodium Chloride 1,000 mls @ 999 mls/hr 02/24/21 20:10 02/24/21 20:25 Normal Saline IV 02/24/21 21:10 999 mls/hr ONETIME ONE Administration - Re-Assessments/Exams Free Text/Narrative Re-Assessment/Exam: 02/24/21 20:10 As above, the patient underwent a right tonsillectomy, with a single wisdom tooth extraction and excision of 30 lymph nodes last Friday. He states that when he sat up this morning, an egg-sized blood clot came out of his mouth, and he had a similar episode tonight. He states that he has been feeling both cold and hot. No significant cough. His states that he has not eaten anything for the past 4 days, and drinking hurts to swallow, as well. On examination, the right tonsillectomy appears to be healing appropriately, with no visible bleeding. There is a large right neck surgical wound that appears to be healing appropriately. His lungs are clear to auscultation bilaterally. I have ordered a CBC, CMP, and magnesium level to look for anemia or electrolyte abnormalities, along with a chest x-ray to rule out an abnormality consistent with hemoptysis. In the meantime, the patient requested IV fluid - I ordered a 1 L bolus. 02/24/21 21:23 Two-view chest radiograph appears to be grossly normal. The cardiac silhouette is within normal limits. No pulmonary vascular congestion. No pleural effusions. No focal infiltrate. No pneumothorax. Formal read per the Radiologist pending. The patient's CBC is remarkable for mild leukocytosis of 11.91, but with 0% bandemia. His Hgb slightly depressed at 13.2, with a Hct within normal limits at 42.9. He has mild thrombocytosis of 403,000. His CMP is remarkable for an anion gap slightly elevated at 17.1, with a bicarbonate within normal limits at 22. His BUN is mildly elevated at 31, with a Cr within normal limits at 1.0. He has hyperglycemia of 170, with remainder of his CMP being unremarkable. His magnesium level is within normal limits at 2.0. 02/24/21 21:29 Test results discussed with the patient. As above, he is not anemic, he is not dehydrated, and there are no significant electrolyte abnormalities. His IV fluid has barely started. I will allow that to finish, after which he can be discharged home. If his symptoms persist, I would like him to follow-up with his ENT. Departure - Departure Time of Disposition: 21:30 Disposition: Home, Self-Care 01 Condition: Good Clinical Impression: Post-tonsillectomy hemorrhage - Discharge Information *PRESCRIPTION DRUG MONITORING PROGRAM REVIEWED*: Not Applicable *COPY OF PRESCRIPTION DRUG MONITORING REPORT IN PATIENT [place]: Not Applicable Referrals: Yolanda Horn NP [Primary Care Provider] - Rodriguez Sequeira MD [Ordering Only Provider] - John Mejia MD [Ordering Only Provider] - Isabel Brush MD [Ordering Only Provider] - Forms: ED Department Discharge Additional Instructions: You were seen in the emergency room after spitting up a blood clot this morning, and another this evening, after undergoing a right tonsillectomy with 30 lymph node excisions and a wisdom tooth extraction on 02/16/2021. On examination, no source of bleeding was seen - the sites appear to be healing normally. Work-up in the ER included several blood tests and a chest x-ray, all of which were unremarkable. You are not dehydrated. No electrolyte abnormalities were found. You are not anemic. No suggestion of bleeding in your chest was found. You were treated with 1 L of IV fluid in the ER. Going forward, we recommend you stay adequately hydrated. Popsicles or ice cream may feel best. If your symptoms recur or persist, please follow-up with your ENT, Dr. Rodriguez Sequeira, for further evaluation. If any other problems, please do not hesitate to return to the ER. Sepsis Event Note (ED) - Evaluation Sepsis Screening Result: No Definite Risk - Focused Exam Vital Signs: Vital Signs Temp Pulse Resp BP Pulse Ox 02/24/21 22:00 73 20 114/79 97 02/24/21 19:33 36.9 C 103 H 16 152/85 H 99 - My Orders Last 24 Hours: My Active Orders 02/24/21 20:09 Chest 2V [CR] Stat - Assessment/Plan Last 24 Hours: My Active Orders 02/24/21 20:09 Chest 2V [CR] Stat
[2021-02-24 22:45] VITALS: BP 114/79; PULSE 73
--- NOTE | 2021-02-25 09:16 | CR ---
Chest: 2 views of the chest were obtained. Comparison: Prior chest x-ray of 12/31/17. Heart size and mediastinum are normal. Lungs are clear with no acute parenchymal change. Surgical clips are seen within the base of the right neck. Bony structures show nothing acute for the patient's age. Impression: 1. Surgical clips within the base of the right neck. 2. Nothing acute is otherwise seen on 2 view chest x-ray. Diagnostic code #2
== END 2021-02-24 22:30 | disposition home or self-care (01) ==
LOC: JD.ED 19:20
DX: J95.831 Postprocedural hemorrhage of a respiratory system organ or structure following other procedure (principal); I25.10 Atherosclerotic heart disease of native coronary artery without angina pectoris; E78.00 Pure hypercholesterolemia, unspecified; I10 Essential (primary) hypertension; I25.2 Old myocardial infarction; K21.9 Gastro-esophageal reflux disease without esophagitis; E66.9 Obesity, unspecified; Z79.82 Long term (current) use of aspirin; Z79.899 Other long term (current) drug therapy; Z68.30 Body mass index [BMI] 30.0-30.9, adult; Z87.891 Personal history of nicotine dependence
CPT/HCPCS: 36415; 71046; 80053; 83735; 85007; 85027; 99284; J7030; 99283

== ENCOUNTER 2023-05-28 11:01 | Day surgery (SDC) | payer OTHER ==
[~2023-05-28 11:01] MED LIST changes: -Lidocaine 1%/Sod Bicarbonate in NS 8.4% 1 ML Syringe IDERM PRN; -Midazolam 1 MG/ML 2 ML SDV ONE; -Propofol 200 MG/20 ML SDV ONE; +Sodium Chloride 0.9% 10 ML Syringe FLUSH SCH; -fentaNYL 100 MCG/2 ML SDV ONE
[2023-05-28] MEDS ORDERED: Propofol 200 MG/20 ML SDV ONE (12:35)
[2023-05-28] MEDS ORDERED: fentaNYL 100 MCG/2 ML SDV ONE (12:35)
[2023-05-28] MEDS ORDERED: Lidocaine 1% 4 ML ONE (12:35)
[2023-05-28 14:33] VITALS: BP 121/71; PULSE 60
== END 2023-05-28 13:40 | disposition home or self-care (01) ==
LOC: JD.SDS 11:01
PROVIDERS: ATTEND Surgery
DX: K29.50 Unspecified chronic gastritis without bleeding (principal); K29.80 Duodenitis without bleeding; I10 Essential (primary) hypertension; E78.2 Mixed hyperlipidemia; K21.9 Gastro-esophageal reflux disease without esophagitis; E11.9 Type 2 diabetes mellitus without complications; G47.33 Obstructive sleep apnea (adult) (pediatric); F17.210 Nicotine dependence, cigarettes, uncomplicated; E66.9 Obesity, unspecified; Z68.38 Body mass index [BMI] 38.0-38.9, adult; Z79.899 Other long term (current) drug therapy; Z79.82 Long term (current) use of aspirin; Z98.890 Other specified postprocedural states; Z79.84 Long term (current) use of oral hypoglycemic drugs; Z91.030 Bee allergy status; Z88.5 Allergy status to narcotic agent
CPT/HCPCS: 43239; J2704; J3010; J7120; 00731; J3490